=== PATIENT | female | born 1955 | race Caucasian/White ===

== ENCOUNTER 2020-04-30 12:12 | Emergency (ER) | payer MEDICARE, OTHER ==
[~2020-04-30] VITALS: Ht 162.6 cm; Wt 90.7 kg
[~2020-04-30 12:12] MED LIST: AMBIEN5 MG PO; BUPROPION XL300 MG PO; CETIRIZINE HCL10 MG PO; CLONAZEPAM0.5 MG PO; DEXILANT60 MG PO; FLUDROCORTISON0.1 MG PO; LASIX40 MG PO; LEVOTHYROXINE100 MCG PO; MECLIZINE HCL12.5 MG PO; METOPROLOL SUCC25 MG PO; NEXIUM40 MG PO; PAROXETINE HCL20 MG PO; POTASSIUM CHLO10 MEQ PO; PROMETHAZINE HC25 M1 PO; TRAZODONE HCL100 MG PO
[2020-04-30] MEDS ORDERED: HYDROCODONE/APAP 7.5MG-325MG 1 EA TAB PO ONE (12:30)
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
--- OUTSIDE RECORDS SUMMARY | 2020-04-30 12:47 | XMS REPORT | Continuity of Care Document ---
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 interpreting physician as well as the 3-D specialist for optimal visualisation of the coronary anatomy. Consecutive thin slices (< 1mm) were obtained. Arrival heart rate was suboptimal, of at least 68 bpm. Me dication administration: Oral metoprolol 62.5 mg;IV metoprolol 10 mg;S/L nitrogl yercin 0.4 mg. Please refer to the contrast sheet scanned in the RIS system for the amount and route of contrast given. This exam was performed according to our departmental dose-optimisation programme, which includes automated exposure con trol, adjustment of the mA and/or kV according to patient size and/or use of ite rative reconstruction technique. Dose modulation, iterative reconstruction, and/ or weight based adjustment of the mA/kV was utilized to reduce the radiation dos e to as low as reasonably achievable. FINDINGS: VASCULAR: The thoracic aorta i s normal in course, caliber, contour. Minimal calcification is identified at the aortic root. Minimal atherosclerosis is seen in the descending thoracic aorta. Maximum diameter of the mid ascending thoracic aorta measure 3.5 cm at that is w ithin normal reference range. There is no acute aortic pathology, specifically, there is no dissection, contained rupture, and intramural hematoma. The arch ve ssel branching pattern is normal. The central pulmonary artery is normal in [place]. The left ventricle is normal in size, and mild left atrial prominence is p resent. There is normal atrio-ventricular and ventriculo-arterial concordance, and systemic and pulmonary venous return. The pericardium is normal appearanc e. There is no evidence of pericardial effusion. Calcium score and high-resoluti on, ECG synchronized computed tomography of the heart with attention to the ruby nary arteries was performed. Coronary calcification was analyzed using the [employer] a system software. These are the results of the calcium score evaluation (thresh old = 130 HU): LM: = 0 LAD: = 0 LCX: = 0 RCA: = 104 Agatston: = 104 Reference ranges for calcium scores are provided as follows (Huffman Clin Proc 1999; 74: 243-252): 0-10: minimal calcium 11-100: mild calcium 101-400 moderate calcium > 400 significant calcium The calcium score places patient between 50th-75 percentile for her age group, using the HUERTAS database. The coronary arteries have normal origins. The left main coronary artery arises from the left sinus of Valsalva and give rise to the left anterior descending of the left circumflex arteries in the normal fashion. The right coronary artery arises from the right sinus of Valsalva. The left main coronary artery is widely patent. The proximal and mid LAD is widely patent. The distal LAD small in calibre in part, likely due to the prominence of the PDA. The first diagonal art samantha measure less than 2 mm in size and is widely patent proximally. Incidental note, ramus artery is identified that is small in size and is patent proximally. The left circumflex artery is nondominant, and measure less than 2 mm in size. It is patent. A tiny first OM branch is seen in the LCx continues as a small wililams ibre vessel distally. The right coronary artery is a dominant vessel. It measure at least 4 to 4.5 mm proximally. Eccentric nonobstructive calcification seen in the mid RCA. The PDA is widely patent, measure 2.5 mm in diameter supplying poli ority of the inferior septum. A medium-sized PL branch is seen, measure at least 3 mm in diameter supplying the inferolateral wall. NON-VASCULAR: Various hypode nsities are seen in the thyroid gland especially in the left thyroid lobe, measu re up to 1.8 cm in diameter image 5. Further assessment by ultrasound scan would provide further tissue characterization. The chest wall and mediastinum appears unremarkable. No significant adenopathy is identified in the mediastinum. In the lung windows, no obvious endobronchial lesion is seen and no pleural effusion is identified. Dependent changes are seen in the lung bases. Some subsegmental a telectatic changes are identified. Calcified granuloma is identified in the left upper lobe at image 12. Overall, no suspicious pulmonary nodule is identified. Limited images of the upper abdomen reveals no gross abnormality. Suture materia l is identified in the upper stomach/GE junction that may give rise to a hiatus hernia.. Correlate with operative report. In the bony windows, no acute bony pat hology is identified. Some degenerative changes is present. CONCLUSIONS: 1. Carlos ntitative coronary artery calcium Agatston score 104. The calcium score places patient between 50th-75 percentile for her age group, using the HUERTAS database. Coronary artery calcification is seen in the RCA territ ory. 2. Normal coronary artery origins. The major epicardial coronary arteries , including the left main, the left anterior descending artery, left circumflex artery, and the right coronary artery are widely patent with no focal stenosis. The right coronary artery is prominent, and the PDA supplying the majority of th e inferior septum. The presence of scattered calcific atherosclerosis confirmed the presence of early atherosclerosis. The data will be sent for CT analysis, by an independent third libertarian vendor. Should the data be accepted for postprocessi ng, the result would be sent to PACS/Sabesim when available. 3. No acute pulmonar y pathology. Evidence of prior granulomatous disease. 4. Normal thoracic aorta. 5. Other findings as described above. Various hypodensities are seen in the th yroid gland especially in the left thyroid lobe, measure up to 1.8 cm in diamete r image 5. Further assessment by ultrasound scan would provide further tissue ch aracterization. 6. The non-vascular findings will be reviewed by the Court Manager Radiologist and addendum will be added as needed. Signed: Anibal Zamudioep ort Verified Date/Time: 03/24/2017 14:09:17 Reading Location: [address] MRI 06:0 0 PM [id number] 10:41:00* Test Item Value Reference Range Interpretation Comments POC-CREATININE (HETAL) (test code = 1859) 1.0 mg/dL 0.6-1.3 TESTED AT [facility] [address] [facility] [address] POC-EGFR (HETAL) (test code = 1860) 56 mL/min/1.73M2
--- NOTE | 2020-04-30 13:09 | Diagnostic Imaging Report ---
Exam: WRIST COMPLETE LEFT - 3 views History: Fall on out stretched hand, left wrist pain, possible broken left wrist Comparison: Left wrist radiographs 04/07/2015 Findings: Mildly comminuted intra-articular fracture of the distal radius with mild dorsal impaction and angulation. Additional nondisplaced ulnar styloid process fracture. Diffuse osseous demineralization. No joint dislocation. Carpal joint spaces are well-preserved. Diffuse soft tissue swelling adjacent to fracture. Impression: 1. Mildly comminuted intra-articular fracture of the distal radius with mild dorsal impaction and angulation. 2. Additional nondisplaced ulnar styloid process fracture. Signed by: Dr. Eduardo Styles M.D. on 04/30/2020 1:06 PM
[2020-04-30] MEDS ORDERED: KETOROLAC TROMETHAMINE 60 MG/2 ML VIAL IM ONE (14:15)
--- NOTE | 2020-04-30 15:01 | Emergency Department Note ---
History of Present Illnes History of Present Illness Chief Complaint: Extremity Trauma/Pain History of Present Illness This is a 64 year old female Patient in from home with complaints of left wrist pain that happened after a mechanical trip and fall at home. Patient reports that she fell and broke her fall with her left wrist. Patient denies LOC or hitting her head. Patient's left wrist is red and swollen. Patient is able to move her fingers well. No acute distress noted. VSS. Historian: Patient Arrival Mode: Car Nautical Instrument Mechanic Required: No Onset (how long ago): minute(s) Location: LEFT WRIST Quality: PAIN Radiation: Reports non-radiation Severity: moderate Onset quality: sudden Timing of current episode: constant Progression: unchanged Chronicity: new Context: Reports trauma/injury (FOOSH ONTO LEFT WRIST) Relieving factors: none Exacerbating factors: none Associated symptoms: Reports denies other symptoms; Denies confusion, Denies chest pain, Denies syncope Past Medical/Family History Physician Review I have reviewed the patient's past medical and family history. Any updates have been documented here. Past Medical History Recent Fever: No Clinical Suspicion of Infectio: No New/Unexplained Change in Ment: No Past Medical History: Depression Other Medical History: HX CRF SLEEP APNEA GERD Other Surgery: GASTRIC BYPASS 2011 CARDIAC STENT Social History Smoking Cessation: Never Smoker Counseling Performed: No Alcohol Use: Occasional Any Illegal Drug Use: No TB Exposure/Symptoms: No Physically hurt or threatened: No Family History Family history of heart diseas: No Other Last Tetanus: UTD Any Pre-Existing Lines (PICC,: No Review of Systems Review of Systems Constitutional: Reports no symptoms EENTM: Reports no symptoms Cardiovascular: Reports no symptoms Respiratory: Reports no symptoms Gastrointestinal: Reports no symptoms Genitourinary: Reports no symptoms Musculoskeletal: Reports as per HPI, Reports joint pain (LEFT WRIST) Integumentary: Reports no symptoms Neurological: Reports no symptoms Psychological: Reports no symptoms Endocrine: Reports no symptoms Hematological/Lymphatic: Reports no symptoms Physical Exam Related Data Allergies: Coded Allergies: Sulfa (Sulfonamide Antibiotics) (Verified Allergy, Intermediate, RASH, ) Triage Vital Signs Vital Signs Date Time Temp Pulse Resp B/P (MAP) Pulse Ox O2 Delivery O2 Flow Rate FiO2 04/30/20 12:16 97.1 76 16 119/73 100 Room Air Vital signs reviewed: Yes Physical Exam CONSTITUTIONAL Constitutional: Present well-developed, Present well-nourished HENT HENT: Present normocephalic, Present atraumatic, Present oropharynx clear/moist, Present nose normal HENT L/R: Present left ext ear normal, Present right ext ear normal EYES Eyes: Reports PERRL, Reports conjunctivae normal NECK Neck: Present ROM normal PULMONARY Pulmonary: Present effort normal, Present breath sounds normal CARDIOVASCULAR Cardiovascular: Present regular rhythm, Present heart sounds normal, Present capillary refill normal, Present normal rate GASTROINTESTINAL Abdominal: Present soft, Present nontender, Present bowel sounds normal GENITOURINARY Genitourinary: Present exam deferred SKIN Skin: Present warm, Present dry MUSCULOSKELETAL Musculoskeletal: Present swelling (WITH MILD DDEFORMITY LEFT WRST, GOOD PULSES, N/V INTACT DISTALLY) NEUROLOGICAL Neurological: Present alert, Present oriented x 3, Present no gross motor or sensory deficits PSYCHOLOGICAL Psychological: Present mood/affect normal, Present judgement normal Results Imaging Imaging results reviewed: Yes Impressions Exam: WRIST COMPLETE LEFT - 3 views History: Fall on out stretched hand, left wrist pain, possible broken left wrist Comparison: Left wrist radiographs 04/07/2015 Findings: Mildly comminuted intra-articular fracture of the distal radius with mild dorsal impaction and angulation. Additional nondisplaced ulnar styloid process fracture. Diffuse osseous demineralization. No joint dislocation. Carpal joint spaces are well-preserved. Diffuse soft tissue swelling adjacent to fracture. Impression: 1. Mildly comminuted intra-articular fracture of the distal radius with mild dorsal impaction and angulation. 2. Additional nondisplaced ulnar styloid process fracture. Signed by: Dr. Eduardo Styles M.D. on 04/30/2020 1:06 PM Procedures Orthopedic Splinting/Casting Injury: Injury #1 Side: left Upper exremity injury location: wrist Upper extremity immobilizer: wrist splint (RADIAL GUTTER) Assessment & Plan Medical Decision Making MDM CHECK XRAY, EVAL FX Reassessment Reassessment DC HOME, F/U DR NEVAREZ TOMORROW, TYL #3, OTC IBUPROFEN, RTED PRN Assessment & Plan Final Impression: (1) Distal radius fracture, left Depart Disposition: HOME, SELF-CARE Last Vital Signs Date Time Temp Pulse Resp B/P (MAP) Pulse Ox O2 Delivery O2 Flow Rate FiO2 04/30/20 12:35 98.5 73 17 115/67 100 Room Air Home Meds Reported Medications Zolpidem Tartrate (AMBIEN) 5 Mg Tablet, PO HS, #30 TAB 02/18/16 Potassium Chloride (POTASSIUM CHLORIDE) 10 Meq Tablet.er, 10 MEQ PO DAILY 04/07/15 Esomeprazole Magnesium (NEXIUM) 40 Mg Capsule.dr, 40 MG PO DAILY PROTONIX THERAPEUTIC SUBSTITUTE FOR NEXIUM PER [facility] 04/07/15 Bupropion Hcl (BUPROPION XL) 300 Mg Tab.er.24h, 300 MG PO DAILY 04/28/14 Paroxetine Hcl (PAROXETINE HCL) 20 Mg Tablet, 20 MG PO DAILY, #30 TAB 04/28/14 Dexlansoprazole (DEXILANT) 60 Mg Cap..mp, 60 MG PO DAILY 04/28/14 Levothyroxine Sodium (LEVOTHYROXINE SODIUM) 100 Mcg Tablet, 100 MCG PO DAILY 04/28/14 Meclizine Hcl (MECLIZINE HCL) 12.5 Mg Tablet, 12.5 MG PO Q8 PRN for DIZZINESS, TAB 04/28/14 Clonazepam (CLONAZEPAM) 0.5 Mg Tablet, 0.5 MG PO BID, TAB 04/28/14 Furosemide (LASIX) 40 Mg Tablet, 40 MG PO DAILY, #30 TAB 04/28/14 Cetirizine Hcl (CETIRIZINE HCL) 10 Mg Tablet, 10 MG PO DAILY for ALLERGY 04/28/14 Medications in the ED Acetaminophen/ Hydrocodone Bitart 1 ea NOW ONCE PO Last administered on 04/30/20at 12:34; Admin Dose 1 EA; Start 04/30/20 at 12:30; Stop 04/30/20 at 12:31; Status DC Ketorolac Tromethamine 30 mg ONCE ONCE IM ; Start 04/30/20 at 14:15; Stop 04/30/20 at 14:16; Status DC LAILA LAMBERT MD Apr 30, 2020 15:01
== END 2020-04-30 15:21 | disposition home or self-care (01) ==
LOC: ER 12:45
DX: S52.502A Unspecified fracture of the lower end of left radius, initial encounter for closed fracture (principal); S52.615A Nondisplaced fracture of left ulna styloid process, initial encounter for closed fracture; W01.0XXA Fall on same level from slipping, tripping and stumbling without subsequent striking against object, initial encounter; Y92.008 Other place in unspecified non-institutional (private) residence as the place of occurrence of the external cause; N18.9 Chronic kidney disease, unspecified; F32.9 Major depressive disorder, single episode, unspecified; G47.30 Sleep apnea, unspecified; K21.9 Gastro-esophageal reflux disease without esophagitis; Z98.84 Bariatric surgery status
CPT/HCPCS: 29125; 73110; 99284; J1885

== ENCOUNTER → 2020-05-10 | Day surgery (SDC) | payer MEDICARE ==
[2020-05-07 11:38] LABS: BASOPHILS # (AUTO) 0.1 (0.0-0.1); BASOPHILS % 1.9 % (0.0-1.0); EOSINOPHILS # (AUTO) 0.5 (0.0-0.4); HEMATOCRIT 35.1 % (34.2-44.1); HEMOGLOBIN 10.5 g/dL (12.0-16.0); LYMPHOCYTES # (AUTO) 1.3 (1.0-3.2); LYMPHOCYTES % 22.3 % (18.0-39.1); MEAN CORPUSCULAR HEMOGLOBIN 24.3 pg (28-32); MEAN CORPUSCULAR HGB CONC 29.9 g/dL (31-35); MEAN CORPUSCULAR VOLUME 81.3 fL (81-99); MONOCYTES # (AUTO) 0.5 (0.2-0.8); NEUTROPHILS # (AUTO) 3.4 (2.1-6.9); NEUTROPHILS % 57.6 % (38.7-80.0); PLATELET COUNT 316 x10e3/uL (140-360); RED BLOOD COUNT 4.32 x10e6/uL (3.6-5.1); RED CELL DISTRIBUTION WIDTH 15.4 % (11.7-14.4)
[2020-05-07 11:59] LABS: ANION GAP 11.8 mmol/L (8-16); CALCIUM 8.9 mg/dL (8.4-10.2); CREATININE, SERUM 1.1 mg/dL (0.57-1.11); POTASSIUM 4.8 mmol/L (3.5-5.1)
--- NOTE | 2020-05-07 12:59 | Diagnostic Imaging Report ---
TECHNIQUE: Frontal and lateral views of the chest. INDICATION: ^[id number] ^[id number] ^PRE OP COMPARISON: None. IMPRESSION: Lines and hardware: None. Heart and mediastinum: Tortuous and calcific aorta. Lungs and pleura: No focal airspace consolidation. Left upper lobe 0.5 cm nodule, possibly granuloma. Recommend nonemergent dedicated chest CT. No pleural effusion. No pneumothorax. Soft tissues and bones: No acute bony abnormality. Signed by: José Miguel Christian MD on 05/07/2020 12:56 PM
[~2020-05-10] MED LIST changes: +ALENDRONATE SOD70 MG PO; +ATORVASTATIN CA20 MG PO; +CEFAZOLIN SOD 1 GM/NS 50ML 100 ML IV ONE; +CYMBALTA20 MG PO; +DEXAMETHASONE SOD PHOS INJ 4 MG/ML VIAL ONE; +DIPHENHYDRAMINE HCL INJ 50 MG/ML VIAL ONE; +FENTANYL CITRATE/PF 100MCG/2 ML INJ ONE; +HYDROCODONE/APAP 5MG-325MG TAB ONE; +HYDROMORPHONE 1MG/1ML INJ ONE; +LIDOCAINE HCL 2% JELLY 5 ML TUBE ONE; +LIDOCAINE HCL 2% LOCAL INJ 5 ML SDV VIAL INJ ONE; +MEPERIDINE HCL INJ 25 MG/ML VIAL ONE; +METOPROLOL SUCC50 MG PO; +MIDAZOLAM HCL 2 MG/2 ML VIAL ONE; +PROPOFOL IV EMULSION 10 MG/ML 20 ML VIAL ONE; +PROPRANOLOL HCL10 MG PO; +QUETIAPINE FUM100 MG PO; +ROPIVACAINE 0.5% 5 MG/ML 30 ML SDV ONE; +SEVOFLURANE INHAL SOLN 250 ML PEN BTL ONE; +TYLENOL # 31 EA; +VITAMIN D310 MCG PO
[2020-05-10 16:05] VITALS: BP 132/68
--- NOTE | 2020-05-10 18:32 | Operative Report ---
DATE OF PROCEDURE: 05/10/2020 SURGEON: Coby Casillas MD PREPROCEDURE DIAGNOSIS: Left intra-articular distal radius fracture, greater than 3 fragments. POSTPROCEDURE DIAGNOSIS: Left intra-articular distal radius fracture, greater than 3 fragments. PROCEDURE PERFORMED: Left open reduction internal fixation of intra-articular distal radius fracture, greater than 3 fragments . FOREPART ROUNDER: None. ANESTHESIA: General. COMPLICATIONS: None. SPECIMENS: None. ESTIMATED BLOOD LOSS: Minimal. INDICATIONS FOR PROCEDURE: Kyara Bernard is a 64-year-old female, who sustained a left intra-articular distal radius fracture after a fall. She presented to our clinic with a displaced intra-articular distal radius fracture. Benefits and risks of surgery were discussed with the patient including bleeding, infection, damage to vascular structures, need for additional surgery, persistent pain, stiffness, possible loss of life or limb, nonunion, tendon rupture, and possible need for additional surgery, knowing that she elected to proceed. DESCRIPTION OF PROCEDURE: The patient was identified in the preoperative holding area where the above-noted site was marked. The patient was then transported to the operating room, where the above-noted anesthesia was induced. She was placed supine on the table with the left upper extremity on to the hand table. Left upper extremity was then prepped and draped in the usual sterile fashion. Preoperative antibiotics were dosed. Approximately 5 cm incision was then planned down, centered over the FCR tendon sheath. A preprocedural time-out was called and all were in agreement. The Esmarch was used to exsanguinate the limb. Tourniquet was raised to 250 mmHg. We incised the skin, subcu tissue taking care to achieve careful hemostasis. The FCR tendon was then encounter and was then retracted radially and the sub sheath was then entered. Blunt dissection was used to sweep the FPL and finger flexor ulnarly. The pronator quadratus was then elevated in a proximal distal direction of volar surface of the radius. We then turned our attention to the impaction fracture fragments using a Lamont elevator. Gentle debridement was done of the fracture site and irrigation was performed. After reduction maneuver was performed a standard Acumed proximal plate was then placed on the volar surface of the radius. It was held in place with K-wires and we obtained multiplanar fluoroscopic views to ensure that we had adequate plate placement. Once we were satisfied with this, we then placed multiple points of fixation into the distal aspect of the plate. down to bone. We then proceeded to place multiple points of locking fixation distally. We then after placing the remainder of the distal screws, nonlocking screw was removed and was then placed and a single very low angle screw was placed to help direct a little bit under the subchondral bone. After this was performed we then held the plate down to bone and reduced position and then placed a single nonlocking screw to suck the plate down to bone. Two additional proximal locking screws were then placed in appropriate length and all screws achieved good purchase. We then obtained multiplanar fluoroscopic view, demonstrated excellent position of our hardware as well as length of our screws and excellent reduction. The wrist was taken through gentle range of motion was noted to be stable. DRUJ was tested in neutral supination and pronation was noted to be stable as well. Copious irrigation was performed. The pronator quadratus was then repaired to the volar surface of the radius with 3-0 Vicryl. The skin was then closed with 3-0 nylon in a horizontal mattress fashion. Soft sterile dressing was then placed followed by a volar splint. Tourniquet was let down. The fingers pinked up nicely. The patient was then awoken from anesthesia and taken to PACU in stable condition. POSTOPERATIVE PLAN: The patient will be discharged home today. She will see us back in clinic in [place] Healy/NIDIA /[id number]
== END | disposition home or self-care (01) ==
LOC: OR 10:19
PROVIDERS: ATTEND Orthopaedic Surgery
DX: S52.572A Other intraarticular fracture of lower end of left radius, initial encounter for closed fracture (principal); G47.33 Obstructive sleep apnea (adult) (pediatric); I25.10 Atherosclerotic heart disease of native coronary artery without angina pectoris; E03.9 Hypothyroidism, unspecified; I10 Essential (primary) hypertension; J44.9 Chronic obstructive pulmonary disease, unspecified; F32.9 Major depressive disorder, single episode, unspecified; W19.XXXA Unspecified fall, initial encounter; Y92.009 Unspecified place in unspecified non-institutional (private) residence as the place of occurrence of the external cause; Z88.2 Allergy status to sulfonamides; Z01.810 Encounter for preprocedural cardiovascular examination; Z01.812 Encounter for preprocedural laboratory examination; Z01.818 Encounter for other preprocedural examination; Z11.59 Encounter for screening for other viral diseases; Z98.61 Coronary angioplasty status
CPT/HCPCS: 25609; 36415; 71046; 80048; 85025; 93005; C1713 ×7; C1769; J0690; J1100; J1170; J1200; J2001 ×2; J2175; J2250; J2704; J2795; J3010; U0002

== ENCOUNTER 2020-05-17 08:00 | Outpatient (RCR) | payer MEDICARE, OTHER ==
[~2020-05-17 08:00] MED LIST changes: -CEFAZOLIN SOD 1 GM/NS 50ML 100 ML IV ONE; -DEXAMETHASONE SOD PHOS INJ 4 MG/ML VIAL ONE; -DIPHENHYDRAMINE HCL INJ 50 MG/ML VIAL ONE; -FENTANYL CITRATE/PF 100MCG/2 ML INJ ONE; -HYDROCODONE/APAP 5MG-325MG TAB ONE; -HYDROMORPHONE 1MG/1ML INJ ONE; -LIDOCAINE HCL 2% JELLY 5 ML TUBE ONE; -LIDOCAINE HCL 2% LOCAL INJ 5 ML SDV VIAL INJ ONE; -MEPERIDINE HCL INJ 25 MG/ML VIAL ONE; -MIDAZOLAM HCL 2 MG/2 ML VIAL ONE; -PROPOFOL IV EMULSION 10 MG/ML 20 ML VIAL ONE; -ROPIVACAINE 0.5% 5 MG/ML 30 ML SDV ONE; -SEVOFLURANE INHAL SOLN 250 ML PEN BTL ONE
== END 2020-05-18 ==
LOC: OT 08:00
PROVIDERS: ATTEND Orthopaedic Surgery
DX: M25.532 Pain in left wrist (principal); S52.572A Other intraarticular fracture of lower end of left radius, initial encounter for closed fracture; W18.30XA Fall on same level, unspecified, initial encounter
CPT/HCPCS: 97010; 97110 ×2; 97165; L3906

== ENCOUNTER 2020-06-12 10:00 | Outpatient (RCR) | payer MEDICARE | END 2020-06-17 | LOC: OT 10:00 | PROVIDERS: ATTEND Orthopaedic Surgery | DX: S52.502D Unspecified fracture of the lower end of left radius, subsequent encounter for closed fracture with routine healing (principal); M25.532 Pain in left wrist; M25.632 Stiffness of left wrist, not elsewhere classified; M25.642 Stiffness of left hand, not elsewhere classified; R53.1 Weakness ==

== ENCOUNTER → 2020-07-18 | Outpatient (RCR) | payer MEDICARE | LOC: OT 06-26 13:54 | PROVIDERS: ATTEND Orthopaedic Surgery | DX: S52.502D Unspecified fracture of the lower end of left radius, subsequent encounter for closed fracture with routine healing (principal); M25.532 Pain in left wrist; M25.632 Stiffness of left wrist, not elsewhere classified; M25.642 Stiffness of left hand, not elsewhere classified; R53.1 Weakness ==

== ENCOUNTER 2020-08-29 11:00 | Outpatient (RCR) | payer MEDICARE | END 2020-09-15 | LOC: OT 11:00 | PROVIDERS: ATTEND Orthopaedic Surgery | DX: S62.102A Fracture of unspecified carpal bone, left wrist, initial encounter for closed fracture (principal) ==